=== PATIENT | female | born 1980 | race Caucasian/White ===

== ENCOUNTER 2017-07-09 15:08 | Emergency (ER) | payer MEDICAID ==
[2012-07-17 07:30] VITALS: BMI 38.7
[2017-07-09 16:16] LABS: BASOPHILS 0.1 % (0-2); EOSINOPHILS 0 % (0-7); HEMATOCRIT 46.1 % (36.0-48.0); HEMOGLOBIN 15.3 g/dL (12-16); IMMATURE GRANULOCYTES 0.3 % (0-5); LYMPHOCYTES 10.2 % (15-50); MCH 28.9 pg (26.0-34.0); MCHC 33.2 g/dL (31.0-37.0); MEAN PLATELET VOLUME 10.7 fL (7.4-10.4); MONOCYTES 7.4 % (2-11); PLATELET COUNT 250 10x3/uL (130-400); RDW 14.3 % (11.5-14.5); WBC 15.2 10x3/uL (4.8-10.8)
[2017-07-09 16:49] LABS: HCG SERUM NEGATIVE (NEGATIVE)
[2017-07-09 17:32] LABS: ALBUMIN 3.2 g/dL (3.4-5.0); ALKALINE PHOSPHATASE 124 U/L (46-116); ALT (SGPT) 30 U/L (10-68); BILIRUBIN - TOTAL 0.75 mg/dL (0.2-1.3); CALCIUM 8.7 mg/dL (8.5-10.1); CARBON DIOXIDE 23.8 mmol/L (21.0-32.0); CREATININE - SERUM 0.8 mg/dL (0.6-1.3); GLUCOSE 100 mg/dL (74-106); UREA NITROGEN 11 mg/dL (7-18); eGFR NON AFRICAN AMERICAN 86 mL/min (90-120)
[2017-07-09 17:43] LABS: CALC OSMOLALITY 268 mosm/kg (275-300); CHLORIDE - SERUM 96 mmol/L (98-107); POTASSIUM - SERUM 3.5 mmol/L (3.5-5.1); SODIUM 135 mmol/L (136-145)
[2017-07-09 17:45] LABS: APPEARANCE CLEAR (CLEAR); BILIRUBIN NEGATIVE (NEGATIVE); COLOR YELLOW (YELLOW); GLUCOSE NEGATIVE (NEGATIVE); KETONE LARGE mg/dL (NEGATIVE); NITRITE NEGATIVE (NEGATIVE); PROTEIN TRACE mg/dL (NEGATIVE); UROBILINOGEN NORMAL (NORMAL)
[2017-07-09 17:47] LABS: BACTERIA FEW /hpf (NONE SEEN); EPITHELIAL CELLS 0-5 /hpf (0-5); RED CELLS - URINE 0-5 /hpf (0-5); WHITE CELLS - URINE 0-5 /hpf (0-5)
== END 2017-07-09 21:42 | disposition home or self-care (01) ==
LOC: D.ER 15:08
PROVIDERS: Emergency Medicine; Physician Assistant
DX: R10.2 Pelvic and perineal pain (principal); I10 Essential (primary) hypertension

== ENCOUNTER → 2019-03-03 15:21 | Outpatient (CLI) | payer MEDICAID ==
[2012-07-17 07:30] VITALS: BMI 38.7
== END | disposition home or self-care (01) ==
LOC: D.RAD 15:21
PROVIDERS: ATTEND Nurse Practitioner
DX: M54.2 Cervicalgia (principal)

== ENCOUNTER 2019-06-05 21:46 | Emergency (ER) | payer MEDICAID ==
[~2019-06-05] VITALS: Ht 157.5 cm; Wt 92.7 kg
[2019-06-05 21:50] VITALS: Ht 157.5 cm; Wt 92.7 kg
[2019-06-05] MEDS ORDERED: LISINOPRIL-HCT1 EAC4 PO (21:51)
[2019-06-05] MEDS ORDERED: AMOXICILLIN500 M1 PO (21:51)
[2019-06-05] MEDS ORDERED: LISINOPRIL-HCT1 EAC7 PO (22:56)
[2019-06-05 23:11] VITALS: BP 150/88
== END 2019-06-05 23:11 | disposition home or self-care (01) ==
LOC: D.ER 21:46
DX: R03.0 Elevated blood-pressure reading, without diagnosis of hypertension (principal)

== ENCOUNTER 2019-10-23 16:43 | Inpatient (IN) | payer MEDICAID ==
[~2019-10-23] VITALS: Ht 157.5 cm; Wt 97.9 kg
[~2019-10-23 16:43] MED LIST: AMOXICILLIN500 M1 PO; LISINOPRIL-HCT1 EAC4 PO; LISINOPRIL-HCT1 EAC7 PO
[2019-10-23 17:21] LABS: BILIRUBIN NEGATIVE (NEGATIVE); GLUCOSE NEGATIVE (NEGATIVE); KETONE NEGATIVE (NEGATIVE); NITRITE NEGATIVE (NEGATIVE); SPECIFIC GRAVITY 1.015 (1.005-1.020); UROBILINOGEN NORMAL (NORMAL)
[2019-10-23 17:21] LABS: BASOPHILS 0.1 % (0-2); EOSINOPHILS 0.1 % (0-7); HEMATOCRIT 48.5 % (36.0-48.0); HEMOGLOBIN 16.4 g/dL (12-16); IMMATURE GRANULOCYTES 0.3 % (0-5); LYMPHOCYTES 7.1 % (15-50); MCH 29.7 pg (26.0-34.0); MCHC 33.8 g/dL (31.0-37.0); MCV 87.7 fL (80.0-100.0); MONOCYTES 4.6 % (2-11); NEUTROPHILS 87.8 % (40-80); PLATELET COUNT 271 10x3/uL (130-400); RBC 5.53 10x6/uL (4.00-5.40); RDW 14.3 % (11.5-14.5); WBC 18.9 10x3/uL (4.8-10.8)
[2019-10-23 17:55] LABS: CALC OSMOLALITY 275 mosm/kg (275-300); CALCIUM 8.4 mg/dL (8.5-10.1); CHLORIDE - SERUM 101 mmol/L (98-107); CREATININE - SERUM 1.2 mg/dL (0.6-1.3); GLUCOSE 130 mg/dL (74-106); POTASSIUM - SERUM 3.6 mmol/L (3.5-5.1); SODIUM 137 mmol/L (136-145); UREA NITROGEN 12 mg/dL (7-18); eGFR NON AFRICAN AMERICAN 53 mL/min (90-120)
[2019-10-23 18:04] LABS: ALBUMIN 3.3 g/dL (3.4-5.0); ALKALINE PHOSPHATASE 77 U/L (30-120); ALT (SGPT) 44 U/L (10-68); AMYLASE - SERUM 41 U/L (25-115); BILIRUBIN - TOTAL 0.59 mg/dL (0.2-1.3); LIPASE 69 U/L (73-393); TROPONIN-I < 0.017 ng/mL (0.000-0.060)
[2019-10-23 18:56] VITALS: BP 136/66
[2019-10-23 18:59] LABS: HCG SERUM NEGATIVE (NEGATIVE)
--- NOTE | 2019-10-23 19:28 | NUR ---
PATIENT COMPLAINS OF ABDOMINAL PAIN 02/19. DENIES NAUSEA AND DIARHEA
[2019-10-23 20:28] VITALS: BP 102/67
--- NOTE | 2019-10-23 23:00 | NUR ---
PT ARRIVED TO THE FLOOR. ALERT AND ORIENTED. NO SIGNS OF DISTRESS. BREATHING EVEN AND UNLABORED. IV SITE RT AC DRESSING CLEAN DRY AND INTACT. NO SIGNS OF INFECTION OR INFULTRATION. LUNG SOUNDS CLEAR. BOWEL SOUNDS ACTIVE. SKIN CLEAN DRY AND INTACT. NO LOWER LEG SWELLING PRESENT. AT BEDSIDE. WILL CONTINUE PLAN OF CARE. PT STATES NO NEEDS AT THIS TIME. BED RAILS UPX2. CALL LIGHT IN REACH.
[2019-10-24 03:22] VITALS: BP 117/74; BMI 38.5
[2019-10-24 04:00] VITALS: BP 113/66
[2019-10-24 05:02] LABS: CALC OSMOLALITY 270 mosm/kg (275-300); CALCIUM 7.6 mg/dL (8.5-10.1); CARBON DIOXIDE 21.5 mmol/L (21.0-32.0); CHLORIDE - SERUM 101 mmol/L (98-107); GLUCOSE 120 mg/dL (74-106); MAGNESIUM - SERUM 1.4 mg/dL (1.8-2.4); PHOSPHOROUS 3.5 mg/dL (2.5-4.9); POTASSIUM - SERUM 3.8 mmol/L (3.5-5.1); SODIUM 135 mmol/L (136-145); UREA NITROGEN 12 mg/dL (7-18); eGFR NON AFRICAN AMERICAN 85 mL/min (90-120)
[2019-10-24 05:08] LABS: CREATININE - SERUM 0.8 mg/dL (0.6-1.3)
[2019-10-24 07:26] LABS: BASOPHILS 0.1 % (0-2); EOSINOPHILS 0 % (0-7); HEMATOCRIT 40.7 % (36.0-48.0); HEMOGLOBIN 13.8 g/dL (12-16); IMMATURE GRANULOCYTES 0.3 % (0-5); LYMPHOCYTES 12.4 % (15-50); MCH 29.5 pg (26.0-34.0); MCHC 33.9 g/dL (31.0-37.0); MEAN PLATELET VOLUME 10.3 fL (7.4-10.4); MONOCYTES 5.6 % (2-11); NEUTROPHILS 81.6 % (40-80); PLATELET COUNT 226 10x3/uL (130-400); RBC 4.68 10x6/uL (4.00-5.40); RDW 14.5 % (11.5-14.5); WBC 17.5 10x3/uL (4.8-10.8)
--- NOTE | 2019-10-24 07:30 | NUR ---
PATIENT CO OF PAIN BUT WHEN ASKED ABOUT WHAT NUMBER ON THE PAIN SCALE. "GABRIEL." SITTING UP IN CHAIR. JET IN ROOM. CL IN REACH. DENIES NEEDS. WCTM
[2019-10-24 08:57] VITALS: BP 116/80
--- NOTE | 2019-10-24 10:52 | NUR ---
PATIENT REQUESTED AND RECIEVED [facility]. PATIENT HAD REQUESTED OF [facility]. AT FIRST SHE WAS NPO. PATIENT STATES DR CUNNINGHAM TOLD HER SHE COULD BUT WITHOUT AN ORDER I WOULD NEED TO AUTHORIZE THAT. ORDER WAS PUT IN 15 MIN LATER PATIENT RECIEVED REQUEST. CL IN REACH. TM
[2019-10-24 12:36] VITALS: Ht 157.5 cm; Wt 97.9 kg
[2019-10-24 12:48] VITALS: BP 127/71
[2019-10-24 13:48] VITALS: BP 115/68
[2019-10-24 20:00] VITALS: BP 157/85
[2019-10-25] VITALS: BP 126/77
--- NOTE | 2019-10-25 02:08 | NUR ---
PT RESTING IN BED. EYES CLOSED. NO SIGNS OF DISTRESS. BREATHING EVEN AND UNLABORED. IV SITE RT AC DRESSING CLEAN DRY AND INTACT. NO SIGNS OF INFECTION OR INFULTRATION. LUNG SOUNDS CLEAR. BOWEL SOUNDS HYPOACTIVE. NO LOWER LEG SWELLING PRESENT. ABD TENDER TO PALPATION. WILL CONTINUE PLAN OF CARE. CALL LIGHT IN REACH. BED LOWERED AND LOCKED. BED RAILS UPX2. AT BEDSIDE.
[2019-10-25 04:00] VITALS: BP 116/63
--- NOTE | 2019-10-25 05:22 | NUR ---
I have reviewed this patient and I concur with the Shift Assessment completed by the Licensed Practical Nurse today this shift.
[2019-10-25 06:12] LABS: BASOPHILS 0.1 % (0-2); EOSINOPHILS 0 % (0-7); HEMATOCRIT 40.7 % (36.0-48.0); HEMOGLOBIN 13.4 g/dL (12-16); IMMATURE GRANULOCYTES 0.4 % (0-5); LYMPHOCYTES 11.1 % (15-50); MCH 29.4 pg (26.0-34.0); MCHC 32.9 g/dL (31.0-37.0); MEAN PLATELET VOLUME 10.5 fL (7.4-10.4); MONOCYTES 6.8 % (2-11); NEUTROPHILS 81.6 % (40-80); PLATELET COUNT 218 10x3/uL (130-400); RBC 4.56 10x6/uL (4.00-5.40); RDW 14.8 % (11.5-14.5); WBC 14.7 10x3/uL (4.8-10.8)
[2019-10-25 06:32] LABS: MCV 89.3 fL (80.0-100.0)
[2019-10-25 06:33] LABS: CALC OSMOLALITY 268 mosm/kg (275-300); CALCIUM 7.5 mg/dL (8.5-10.1); CARBON DIOXIDE 25.3 mmol/L (21.0-32.0); CHLORIDE - SERUM 100 mmol/L (98-107); CREATININE - SERUM 0.8 mg/dL (0.6-1.3); GLUCOSE 99 mg/dL (74-106); SODIUM 135 mmol/L (136-145); UREA NITROGEN 9 mg/dL (7-18); eGFR NON AFRICAN AMERICAN 85 mL/min (90-120)
[2019-10-25 06:34] LABS: PHOSPHOROUS 2.3 mg/dL (2.5-4.9); POTASSIUM - SERUM 3.2 mmol/L (3.5-5.1)
[2019-10-25 08:08] VITALS: BP 106/68
--- NOTE | 2019-10-25 09:00 | NUR ---
ALERT AND ORIENTED X4. ABDOMEN GUARDED WITH GENERALIZED TENDERNESS.BOWEL SOUNDS HYPOACTIVE BUT STATES IS HAVING FLATULANCE. IV TO RT. A/C WITH IVF INFUSING AT PRESCRIBED RATE. UP AMBULATING IN HALLWAY AT THIS TIME WITH . REFUSES SCD'S AT THIS TIME. ENCOURAGED TO USE CALL LIGHT FOR ASSSIT.
[2019-10-25 12:43] VITALS: BP 111/65
[2019-10-25 16:39] VITALS: BP 117/67
--- NOTE | 2019-10-25 19:05 | NUR ---
PATIENT ALERT AND ORIENTED TALKING ON CELL PHONE WHEN ENTERING THE ROOM. PATIENT COMPLAINS OF ABDOMINAL DISCOMFORT BUT DENIES PAIN MEDICINE AT THIS TIME. PATIENT ASKS IF SHE CAN VISIT FRIEND IN ANOTHER ROOM. PERFORMED PHYSICAL ASSESSMENT. ABDOMEN DISTENDED. BOWEL SOUNDS HYPOACTIVE. PATIENT STATES "IT FEELS HOT." PROVIDED EDUCATION FOR PATIENT ABOUT CLEAR LIQUID DIET AND IMPORTANCE OF GUT REST. PATIENT ASKING FOR CHICKEN BROTH NOW THAT DIET ORDER HAS BEEN CHANGED. ASSISTED PATIENT TO FRIENDS ROOM. DENIES FURTHER NEEDS AT THIS TIME. CPOC.
[2019-10-25 20:00] VITALS: BP 133/70
--- NOTE | 2019-10-25 20:30 | NUR ---
PATIENT AMBULATING HALLWAY WITH . TOLERATING EXERCISE WELL. DENIES NEEDS AT THIS TIME. CPOC.
--- NOTE | 2019-10-25 21:15 | NUR ---
PROVIDED PAIN MEDICINE PER ORDER PER REQUEST. PROVIDED PATIENT EDUCATION ON PAIN MEDICINE PER REQUEST. REMAINS AT BEDSIDE. FSBS 92. PATIENT REQUESTS NOT TO BE WOKEN UP AT MIDNIGHT FOR VS OR FSBS. PROVIDED DIABETIC EDUCATION TO PATIENT. PATIENT VERY RECEPTIVE. DENIES FURTHER NEEDS. STATES PAIN MEDICINE IS EFFECTIVE PRIOR TO EXITING THE ROOM. PATIENT DENIES SCD'S. SIDE RAILS UP X 2. CALL LIGHT IN REACH. LEVAQUIN INFUSING AT THIS TIME TO THE RIGHT AC THAT APPEARS PATENT WITH NO SIGNS OR SYMPTOMS OF INFILTRATION. CPOC.
--- NOTE | 2019-10-25 23:26 | NUR ---
BOTH PATIENT AND RESTING WITH NO SIGNS OF DISTRESS. UNLABORED RESPIRATIONS. CPOC.
--- NOTE | 2019-10-26 02:49 | NUR ---
I have reviewed this patient and I concur with the Shift Assessment completed by the Licensed Practical Nurse today this shift.
[2019-10-26 04:00] VITALS: BP 110/69
[2019-10-26 05:18] LABS: BASOPHILS 0.1 % (0-2); EOSINOPHILS 0 % (0-7); HEMOGLOBIN 12.3 g/dL (12-16); IMMATURE GRANULOCYTES 0.4 % (0-5); LYMPHOCYTES 14.2 % (15-50); MCH 28.9 pg (26.0-34.0); MCHC 32.4 g/dL (31.0-37.0); MCV 89.4 fL (80.0-100.0); MEAN PLATELET VOLUME 10.4 fL (7.4-10.4); MONOCYTES 7.2 % (2-11); NEUTROPHILS 78.1 % (40-80); PLATELET COUNT 219 10x3/uL (130-400); RBC 4.25 10x6/uL (4.00-5.40); RDW 14.9 % (11.5-14.5); WBC 11.1 10x3/uL (4.8-10.8)
[2019-10-26 05:37] LABS: CALC OSMOLALITY 275 mosm/kg (275-300); CALCIUM 7.8 mg/dL (8.5-10.1); CHLORIDE - SERUM 105 mmol/L (98-107); CREATININE - SERUM 0.8 mg/dL (0.6-1.3); GLUCOSE 102 mg/dL (74-106); MAGNESIUM - SERUM 2.1 mg/dL (1.8-2.4); POTASSIUM - SERUM 3.4 mmol/L (3.5-5.1); SODIUM 139 mmol/L (136-145); UREA NITROGEN 8 mg/dL (7-18); eGFR NON AFRICAN AMERICAN 85 mL/min (90-120)
[2019-10-26 08:06] VITALS: BP 119/90
--- NOTE | 2019-10-26 09:00 | NUR ---
ALERT AND ORIENTED X4. ABDOMEN OBESE WITH PANNUS. BOWEL SOUNDS NOTED X4 WITH FLATULANCE. STATES ABDOMINAL PAIN IS BETTER AND DENIES INCREASE OF PAIN POST EATING. HRRR AND LUNGS CTA. IVF INFUSING TO RIGHT A/C WITH NO S/S OF INFECTION/INFILTRATION. MAGNESIUM AND PHOSPHORUS REPLACED PER ELECTROLYTE PROTOCOL. ENCOURAGED TO USE CALL LIGHT FOR ASSSIT.
[2019-10-26 12:34] VITALS: BP 131/85
[2019-10-26 16:09] VITALS: BP 124/74
--- NOTE | 2019-10-26 19:00 | NUR ---
PATIENT ALERT AND ORIENTED. AT BEDSIDE. PATIENT WITH HOB ELEVATED TO A 40 DEGREE ANGLE. PATIENT HAS RIGHT AC IV THAT IS INFUSING NS @ 100 ML/HR. LUNG SOUNDS CLEAR. ENCOURAGED AND EDUCATED PATIENT ON COUGHING AND DEEP BREATHING ESPECIALLY WITH REFUCED ACTIVITY. PATIENT RELUCTANT TO FOLLOW THROUGH WITH TEACHING, STATING "IT HURTS TO COUGH THOUGH" ADVISED ON THE USE OF SPLINTING TO BRACE THE ABDOMINAL PRESSURE. PATIENT PROVIDED RETURN DEMONSTRATION. PATIENT STATES THAT SHE WILL WALK UNIT WITH . ASKS ABOUT DIET ORDER, CHECKED ORDERS AND DIET HAS BEEN ADVANCED TO FULL LIQUID. PROVIDED PATIENT WITH OPTIONS AND SHE STATED SHE WANTED CHOCOLATE PUDDING AND AGREED TO HAVE ONE AFTER DONE AMBULATING UNIT. PATIENT BOWEL SOUNDS ACTIVE IN EACH QUADRANT. ABDOMEN DISTENDED AND TENDER TO TOUCH. PATIENT DENIES FURTHER ISSUES AT THIS TIME. CALL LIGHT IS IN REACH AND AT BEDSIDE. CPOC.
--- NOTE | 2019-10-26 19:50 | NUR ---
PATIENT AMBULATING UNIT WITH AT THIS TIME. MINIMAL ASSISTANCE. STATES IN PASSING "I'M OKAY, IT'S NOT SO BAD."
[2019-10-26 20:00] VITALS: BP 138/85
--- NOTE | 2019-10-26 20:30 | NUR ---
PROVIDED CHOCOLATE PUDDING PER REQUEST. PATIENT ON PHONE WITH CHILDREN. TEARFUL AT THIS TIME. PROVIDED SUPPORT. DENIES FURTHER NEEDS AT THIS TIME. CPOC.
--- NOTE | 2019-10-26 21:30 | NUR ---
ADMINISTERED LEVAQUIN VIA IVPB. FLAGYL AND LEVAQUIN ARE SCHEDULED FOR SAME TIME. UNABLE TO INITIATE AT SAME TIME AND ONLY ONE IV SITE. BOTH REQUIRE 1 HOUR TO 1.5 HOUR INFUSION TIME. THEREFORE, LEVAQUIN INITITATED 1 HOUR 10 MINUTES LATE. ADMINISTERED MORPHINE PER ORDER, PER REQUEST FOR PAIN 6/10 TO THE ABDOMEN. TOLERATED CHOCOLATE PUDDING WITH NO PROBLEMS. CPOC.
--- NOTE | 2019-10-26 21:50 | NUR ---
PATIENT REQUESTS NOT TO BE WOKEN UP FOR MIDNIGHT VITALS OR 0000 BLOOD SUGAR.
--- NOTE | 2019-10-27 03:00 | NUR ---
I have reviewed this patient and I concur with the Shift Assessment completed by the Licensed Practical Nurse today this shift.
[2019-10-27 04:00] VITALS: BP 120/73
[2019-10-27 05:10] LABS: BASOPHILS 0.1 % (0-2); EOSINOPHILS 0 % (0-7); HEMATOCRIT 39.1 % (36.0-48.0); HEMOGLOBIN 12.7 g/dL (12-16); IMMATURE GRANULOCYTES 0.3 % (0-5); LYMPHOCYTES 18.6 % (15-50); MCHC 32.5 g/dL (31.0-37.0); MCV 89.3 fL (80.0-100.0); MEAN PLATELET VOLUME 9.7 fL (7.4-10.4); MONOCYTES 9.2 % (2-11); NEUTROPHILS 71.8 % (40-80); RBC 4.38 10x6/uL (4.00-5.40); RDW 14.9 % (11.5-14.5)
[2019-10-27 05:19] LABS: PLATELET COUNT 266 10x3/uL (130-400)
[2019-10-27 05:45] LABS: CALC OSMOLALITY 276 mosm/kg (275-300); CALCIUM 7.8 mg/dL (8.5-10.1); CARBON DIOXIDE 26.7 mmol/L (21.0-32.0); CHLORIDE - SERUM 105 mmol/L (98-107); CREATININE - SERUM 0.8 mg/dL (0.6-1.3); GLUCOSE 114 mg/dL (74-106); MAGNESIUM - SERUM 1.9 mg/dL (1.8-2.4); POTASSIUM - SERUM 3.3 mmol/L (3.5-5.1); SODIUM 139 mmol/L (136-145); UREA NITROGEN 7 mg/dL (7-18); eGFR NON AFRICAN AMERICAN 85 mL/min (90-120)
[2019-10-27 08:58] VITALS: BP 127/89
--- NOTE | 2019-10-27 09:18 | NUR ---
PT UP WALKING AROUND WITH STATES SHE DOES NOT WANT THE MIRALAX THAT SHE DOES NOT HAVE A GALL BLADDER AND HAS BEEN GOING TO THE BATHROOM JUST FINE AND THAT IS NOT WHY SHE IS HERE. EXPLAINED TO PT THAT I UNDERSTOOD BUT STILL HAD TO CHECK WITH HER ABOUT ADMINISTERING MIRALAX ORDERED. PT STATED SHE DOES NOT WANT IT NOR THE CREAM OF WHEAT THAT WAS BROUGHT FOR BREAKFAST AND THAT IT MAKES HER SICK. ADVISED HER I WILL ORDER CREAM OF SOUP IF THAT WORKS BEST. NO OTHER NEEDS VOICED BESIDES PT STATING SHE IS READY TO BE DC. ADVISED HER THAT WILL BE UP TO THE DOCTORS. CL IN REACH, BED IN LOWEST POSITION, CONTINUE WITH PLAN OF CARE
[2019-10-27] MEDS ORDERED: LEVOFLOXACIN500 MG PO (12:47)
[2019-10-27] MEDS ORDERED: FLAGYL500 MG PO (12:47)
[2019-10-27] MEDS ORDERED: ULTRAM50 MG PO (12:48)
[2019-10-27] MEDS ORDERED: MIRALAX17 GM PO (12:49)
--- NOTE | 2019-10-27 13:11 | MORECARE ---
CASE MANAGEMENT DISCHARGE SUMMARY PATIENT: MARLA BEAR UNIT: [id number] ADM DATE: 10/23/19 AGE: 39 : 82 SEX: F ROOM/BED: D.2215 AUTHOR: PRISCILA,DOC PHYSICIAN: REFERRING PHYSICIAN: FRANCO ROBLES MD DATE OF SERVICE: 10/27/19 Discharge Plan Patient Name: MARLA BEAR Facility: [facility]:[employer] : 1980 Planned Disposition: Home or Self Care Anticipated Discharge Date: Discharge Date: Expected LOS: Initial Reviewer: [email or web address] Initial Review Date: 10/23/2019 Generated: 10/27/19 2:10 pm Comments DCP- Discharge Planning Updated by [email or web address]: Sue Sharif on 10/27/19 12:[address] Patient Name: MARLA BEAR Admission Status: ER Accout number: [id number] Admission Date: 10-23-2019 : 1980 Admission Diagnosis: Attending: FRANCO ROBLES Current LOS: 4 Anticipated DC Date: Planned Disposition: Home or Self Care Primary Insurance: MEDICAID [place] Discharge Planning Comments: CM met with patient to complete initial dc planning assessment. CM educated patient on the CM role and verbal consent given by patient to complete assessment. Patient lives at home with her spouse where she is independent with her care. At discharge patient plans to return home and feels this is a safe discharge. CM discussed availability of home health, rehab services, and medical equipment. Patient denied known discharge needs at this time. CM will continue to follow and will assist as needed with dc plans/needs. Commercial Drone Pilot: Sue Sharif DCPIA - Discharge Planning Initial Assessment Updated by [email or web address]: Sue Sharif on 10/27/19 1:04 pm * Is the patient Alert and Oriented? Yes * How many steps to enter\exit or inside your home? * PCP Marla ([facility]) * Pharmacy all care * Preadmission Environment Home with Family * ADLs Independent * Equipment None * List name and contact numbers for known caregivers / representatives who currently or will assist patient after discharge: JET BEAR [phone] * Verbal permission to speak to the caregivers and representatives has been obtained from the patient. N/A * Community resources currently utilized None * Additional services required to return to the preadmission environment? No * Can the patient safely return to the preadmission environment? Yes * Has this patient been hospitalized within the prior 30 days at any hospital? No Patient Name: MARLA BEAR Page [id number] at 1311 All edits/amendments must be made on the electronic document DICTATION DATE: 10/27/191309 OUTSIDE BARREL LATHE OPERATOR: MODESTO 10/27/191309 RPT#: [id number] DC DATE: STATUS: ADM IN [facility] [address] [place] [address] END OF REPORT
--- NOTE | 2019-10-27 14:22 | NUR ---
I have reviewed this patient and I concur with the Shift Assessment completed by the Licensed Practical Nurse today this shift.
--- NOTE | 2019-10-27 14:34 | NUR ---
PT DC HOME, WENT OVER DC INSTRUCTIONS WELL FOLLOW UP APPOINTMENTS. DC IV WITH CATHETER INTACT
--- NOTE | 2019-10-28 16:53 | MORECARE ---
CASE MANAGEMENT DISCHARGE SUMMARY PATIENT: MARLA BEAR UNIT: [id number] ADM DATE: 10/23/19 AGE: 39 : 82 SEX: F ROOM/BED: D.2215 AUTHOR: PRISCILADOC PHYSICIAN: REFERRING PHYSICIAN: FRANCO ROBLES MD DATE OF SERVICE: 10/28/19 Discharge Plan Patient Name: MARLA BEAR Facility: [facility]:[place] : 1980 Planned Disposition: Home or Self Care Anticipated Discharge Date: Discharge Date: 10/27/2019 Expected LOS: 0 Initial Reviewer: [email or web address] Initial Review Date: 10/23/2019 Generated: 10/28/19 5:52 pm Comments DCP- Discharge Planning Updated by [email or web address]: Sue Sharif on 10/27/19 12:[address] Patient Name: MARLA BEAR Admission Status: ER Accout number: [id number] Admission Date: 10-23-2019 : 1980 Admission Diagnosis: Attending: FRANCO ROBLES Current LOS: 4 Anticipated DC Date: Planned Disposition: Home or Self Care Primary Insurance: MEDICAID [place] Discharge Planning Comments: CM met with patient to complete initial dc planning assessment. CM educated patient on the CM role and verbal consent given by patient to complete assessment. Patient lives at home with her spouse where she is independent with her care. At discharge patient plans to return home and feels this is a safe discharge. CM discussed availability of home health, rehab services, and medical equipment. Patient denied known discharge needs at this time. CM will continue to follow and will assist as needed with dc plans/needs. Wait Staff: Sue Sharif DCPIA - Discharge Planning Initial Assessment Updated by [email or web address]: Sue Sharif on 10/27/19 1:04 pm * Is the patient Alert and Oriented? Yes * How many steps to enter\exit or inside your home? * PCP Marla ([facility]) * Pharmacy all care * Preadmission Environment Home with Family * ADLs Independent * Equipment None * List name and contact numbers for known caregivers / representatives who currently or will assist patient after discharge: JET BEAR [phone] * Verbal permission to speak to the caregivers and representatives has been obtained from the patient. N/A * Community resources currently utilized None * Additional services required to return to the preadmission environment? No * Can the patient safely return to the preadmission environment? Yes * Has this patient been hospitalized within the prior 30 days at any hospital? No Last DP export: 10/27/19 12:11 p Patient Name: MARLA BEAR Page [id number] at 1653 All edits/amendments must be made on the electronic document DICTATION DATE: 10/28/191651 STREETSWEEPER OPERATOR: MODESTO 10/28/191651 RPT#: [id number] DC DATE:10/27/19 STATUS: DIS IN [facility] [address] [place] [address] END OF REPORT
== END 2019-10-27 14:35 | disposition home or self-care (01) | DRG 392 ==
LOC: D.ER 16:43 → D.MS 20:07
PROVIDERS: Emergency Medicine; ADMIT Internal Medicine Nephrology; ATTEND Internal Medicine Nephrology
DX: K57.20 Diverticulitis of large intestine with perforation and abscess without bleeding (principal); E87.1 Hypo-osmolality and hyponatremia; J45.909 Unspecified asthma, uncomplicated; E83.42 Hypomagnesemia